=== PATIENT | female | born 1990 | race Caucasian/White ===

== ENCOUNTER 2023-12-24 15:45 | Emergency (ER) | payer OTHER, SELFPAY ==
[2023-12-24 15:51] VITALS: BP 182/103
[2023-12-24 16:05] LABS: % Basophils 0.4 % (0-2); % Eosinophils 0.1 % (0-6); % Immature Granulocytes 0.5 % (0-0.5); Absolute Lymphocytes 1.4 10^3/uL (1.2-3.4); Absolute Monocytes 0.3 10^3/uL (0.1-0.6); Absolute Neutrophils 6.7 10^3/uL (1.4-6.5); Hematocrit 41.2 % (37.0-47.0); Hemoglobin 14.4 g/dL (12.0-16.0); Mean Corpuscular Hgb 30.3 pg (27.0-31.0); Mean Corpuscular Volume 86.7 fL (81.0-99.0); Mean Platelet Volume 9.3 fL (7.4-10.4); Nucleated Red Blood Cells % 0 %; Platelet Count 286 10^3/uL (130-400); Red Blood Cell Count 4.75 10^6/uL (4.20-5.40); Red Cell Dist. Width 12.4 % (11.5-14.5); White Blood Cell Count 8.5 10^3/uL (4.8-10.8)
[2023-12-24 16:32] LABS: ALT (SGPT) 32 U/L (0-35); AST (SGOT) 29 U/L (14-36); Alkaline Phosphatase 71 U/L (38-126); Blood Urea Nitrogen 9 mg/dl (7-17); Calcium 9.8 mg/dl (8.4-10.2); Carbon Dioxide 23 mmol/L (22-30); Chloride 105 mmol/L (98-107); Glucose 153 mg/dl (70-99); Potassium 3.9 mmol/L (3.5-5.1); Sodium 137 mmol/L (135-145); Total Bilirubin 0.6 mg/dl (0.2-1.3); Total Protein 8.3 g/dl (6.3-8.2); eGFR > 60.00
--- NOTE | 2023-12-24 23:02 | ED.GENMED ---
History of Present Illness
General
Chief Complaint: Abnormal Lab Value
Source: patient
Exam Limitations: none
Time Seen by Provider: 12/24/23 16:21
Nursing documentation reviewed up to this point in time: agreed with
Travel History
Have you had any contact with someone who has COVID-19?: No
Do you have any symptoms of coronavirus? Fever > 100 degrees, chills, cough, shortness of breath, sore throat, loss of taste or smell, muscle aches, or headache?: No
History of Present Illness
History of Present Illness:
Patient to ED wt complaint of feeling anxious. States she was hospitalized 2 years ago for hyponatremia. SHe states she feels the same now as she did then. SHe has not had her labs drawn in some time. Came to ED for eval.
Past History
Past History
ED Past Medical History: Psychiatric (adhd)
ED Past Surgical History: None
Social History
Tobacco: Non-smoker
Alcohol: Occasional
Drug: None
Living: alone
Employment: Employed
Family History
Family History: Other (Reviewed and noncontributory)
Review of Systems
Review of Systems
Allergies reviewed?: Yes
All Other Systems: ROS reviewed and negative except as documented in HPI and ROS
Constitutional: Reports no symptoms
EENT: Reports no symptoms
Respiratory: Reports no symptoms
Cardiac: Reports no symptoms
ABD/GI: Reports no symptoms
: Reports no symptoms
Musculoskeletal: Reports no symptoms
Skin: Reports no symptoms
Neurological: Reports no symptoms
Psychiatric: Reports anxiety
Phy Exam
General Physical Exam
General Presentation: well appearing and no apparent distress
General age: appears stated age
General Skin: warm and dry
General Habitus: normal
General Mental: alert
Neurological Exam
Neurological Exam: alert, oriented x3, CN II-XII intact, no motor deficits, no sensory deficits, speech normal and normal gait
Musculoskeletal Exam
Musculoskeletal Exam: full ROM and neuro vasc intact
Skin Exam
Skin Exam: normal color, warm/dry and no rash
Psychiatric Exam
Psychiatric Exam: anxious
Course
Orders/Labs/Results
Orders:
Orders
12/24/23 15:58
Complete Blood Count/With Diff Urgent
Comprehensive Metabolic Panel Urgent
Abnormal Lab Results
12/24/23
15:58
Absolute Neuts (auto) 6.7 H 10^3/uL
(1.4-6.5)
Neutrophils % 79.0 H %
(42.2-75.2)
Lymphocytes % 16.0 L %
(20.5-51.1)
Glucose 153 H mg/dl
(70-99)
Total Protein 8.3 H g/dl
(6.3-8.2)
12/24/23 15:58
12/24/23 15:58
Vital Signs
Initial and Last Documented VS:
Initial Vital Signs
Temp Pulse Resp BP Pulse Ox
98.5 F 99 17 182/103 100
12/24/23 15:51 12/24/23 15:51 12/24/23 15:51 12/24/23 15:51 12/24/23 15:51
Last Documented Vital Signs
Temp Pulse Resp BP Pulse Ox
98.5 F 81 14 182/103 100
12/24/23 15:51 12/24/23 16:45 12/24/23 16:45 12/24/23 15:51 12/24/23 16:45
*Critical Care Note
Total Time (30-74mins, 75-104mins- exclusive of procedures): Not Applicable
Update Note
Update Note:
Labs reviewed with patient. Normal Na. She is discharged home and will follow upw ith PCP. Admits that she feels better knowning that Na is normal. Has no further complaints.
ED Attending Note
-
Portions of this chart may have been created with voice recognition software.� Occasional wrong word or��sound alike� substitutions may have occurred due to the inherent limitations of voice recognition software.
Discharge Plan
Departure
Patient Disposition: Home (Routine Discharge)
Date of Disposition: 12/24/23
Time of Disposition: 16:44
Patient with high blood pressure during this ER visit?: No
Condition: Good
Covid-19: Not Applicable
Discharge Problem:
Anxiety
Instructions: Anxiety, Adult ED
Prescriptions:
No Action
Latuda 20 mg Tablet
20 mg PO QPM Qty: 30 0RF
Activity Restrictions/Additional Instructions:
Followup with your family doctor
Interventions
Interventions:
ED- Fall Risk Assessment Last Done: 12/24/23 16:59
*ED COVID-19 Vaccine History Last Done: 12/24/23 17:06
*Nursing Disposition Last Done: 12/24/23 17:06
Discharge Date and Time
Discharge Date/Time: 12/24/23 17:07
Print Language: LATVIAN
== END 2023-12-24 17:07 | disposition home or self-care (01) ==
LOC: EMR 15:45
PROVIDERS: EMERGENCY PHYSICIAN Emergency Medicine; FAMILY PHYSICIAN Family Medicine
DX: F41.9 Anxiety disorder, unspecified (principal)
CPT/HCPCS: 99283; 80053; 85025

== ENCOUNTER 2024-06-14 19:20 | Emergency (ER) | payer OTHER, SELFPAY ==
[2024-06-14 19:30] VITALS: BP 165/114
[2024-06-14 19:52] LABS: % Basophils 0.5 % (0-2); % Eosinophils 0.9 % (0-6); % Immature Granulocytes 0.3 % (0-0.5); % Lymphocytes 25.4 % (20.5-51.1); % Monocytes 6.7 % (1.7-9.3); % Neutrophils 66.2 % (42.2-75.2); Absolute Eosinophils 0.1 10^3/uL (0-0.7); Absolute Lymphocytes 1.9 10^3/uL (1.2-3.4); Absolute Monocytes 0.5 10^3/uL (0.1-0.6); Absolute Neutrophils 5.1 10^3/uL (1.4-6.5); Hematocrit 42.4 % (37.0-47.0); Mean Corp Hgb Conc. 35.4 g/dL (33.0-37.0); Mean Corpuscular Hgb 32.6 pg (27.0-31.0); Mean Corpuscular Volume 92.2 fL (81.0-99.0); Mean Platelet Volume 9.1 fL (7.4-10.4); Nucleated Red Blood Cells % 0 %; Platelet Count 303 10^3/uL (130-400); Red Cell Dist. Width 11.9 % (11.5-14.5); White Blood Cell Count 7.6 10^3/uL (4.8-10.8)
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
[2024-06-14 20:12] VITALS: BMI 37.9
[2024-06-14 20:17] LABS: HCG, Serum Qualitative Screen Negative
[2024-06-14 20:20] LABS: ALT (SGPT) 34 U/L (0-35); AST (SGOT) 27 U/L (14-36); Albumin 5.1 g/dl (3.5-5.0); Alkaline Phosphatase 75 U/L (38-126); Blood Urea Nitrogen 11 mg/dl (7-17); Calcium 10.3 mg/dl (8.4-10.2); Carbon Dioxide 24 mmol/L (22-30); Chloride 103 mmol/L (98-107); Estimated Creatinine Clearance > 125 ml/min; Glucose 94 mg/dl (70-99); Potassium 3.9 mmol/L (3.5-5.1); Sodium 142 mmol/L (135-145); Total Bilirubin 0.5 mg/dl (0.2-1.3); Total Protein 8.1 g/dl (6.3-8.2); eGFR > 60.00
[2024-06-14 21:01] VITALS: BP 140/100
== END 2024-06-14 21:13 | disposition home or self-care (01) ==
LOC: EMR 19:20
PROVIDERS: Emergency Medicine; EMERGENCY PHYSICIAN Emergency Medicine; FAMILY PHYSICIAN Family Medicine
DX: F41.9 Anxiety disorder, unspecified (principal)
CPT/HCPCS: 99283; 80053; 84703; 85025

== ENCOUNTER 2025-02-26 12:22 | Emergency (ER) | payer OTHER, SELFPAY ==
[2025-02-26 12:24] VITALS: BP 160/100
--- NOTE | 2025-02-26 14:44 | ED.GENMED ---
History of Present Illness
General
Chief Complaint: Anxiety
Source: patient
Time Seen by Provider: 02/26/25 14:07
History of Present Illness
History of Present Illness:
35-year-old female with past medical history of ADHD, anxiety and depression presenting to the emergency department for evaluation due to increased anxiety and side effects from medication changes, unable to be seen by her new psychiatrist until
April. Patient states that for as long as she can remember she has been on medication for ADHD noting she had previously been on 20 to 30 mg of Adderall, was given a new prescription where she was taking 15 mg twice daily and she feels as if
this is not working for her stating she is unsure if there was a brand change or something else but states that this medication was not working for her. Due to various reason she had to leave her psychiatrist and was unable to obtain a new
appointment with a new psychiatrist until April and states that she was unable to see her usual primary care doctor but saw somebody else in the practice to seem hesitant to make any changes to her medications. Patient states it feels as if her
stomach is in knots. 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
Past History
Past History
ED Past Medical History: Psychiatric (ADHD, Anxiety, Depression); Negative Asthma, HTN, Hypercholesterolemia or NIDDM
ED Past Surgical History: None
Social History
Tobacco: Non-smoker
Alcohol: Occasional
Drug: None
Personal: Single
Living: alone
Employment: Employed
Family History
Family History: Other (Reviewed and noncontributory)
Review of Systems
Review of Systems
All Other Systems: ROS reviewed and negative except as documented in HPI and ROS
Phy Exam
Physical Exam
Physical Exam:
GENERAL: Alert , in no apparent distress but does seem anxious
EYE: conjunctiva clear
Head: Normocephalic atraumatic
NECK: Supple,
ENT: mmm.
LUNGS: no acute respiratory distress
NEUROLOGICAL: Alert and oriented
SKIN: Warm and dry, skin intact.
MUSCULOSKELETAL: well perfused.
PSYCH: Normal and appropriate interaction.
Scores
Heart Failure Risk
Heart Failure Risk Score: Not Applicable
Heart Score for Chest Pain Patients
STEMI patient?: Not applicable
Withdrawal Assessment of Alcohol
Withdrawal Assessment Completed?: Not applicable
Course
Orders/Labs/Results
Orders:
Orders
02/26/25 14:32
Crisis Consult Urgent
Reason for Consult: increased anxiety
Vital Signs
Initial and Last Documented VS:
Initial Vital Signs
Temp Pulse Resp BP Pulse Ox
98.2 F 80 16 160/100 98
02/26/25 12:24 02/26/25 12:24 02/26/25 12:24 02/26/25 12:24 02/26/25 12:24
Last Documented Vital Signs
Temp Pulse Resp BP Pulse Ox
98.2 F 84 20 142/65 98
02/26/25 12:24 02/26/25 16:22 02/26/25 16:22 02/26/25 16:22 02/26/25 16:22
MDM/Problems Addressed
Differential Diagnosis Includes:
- Medication side effects
- Exacerbation of chronic anxiety/depression
- No clinical concern for emergent pathology but do suspect ongoing chronic exacerbation of ADHD/anxiety
- Patient stating no SI or HI
MDM/Problems Addressed:
35-year-old female presenting to the ER for evaluation of increased anxiety and depression stating she feels as if her usual medications are not currently working for her, primary care provider did give patient some hesitancy in making any
medication changes. Overall I do not suspect any emergent pathologies however will reach out to patient's primary care provider to discuss potential medication changes at least until patient can be seen by her psychiatrist in April. I will
also notify her [facility] crisis team to help with consult in order to help with other outpatient avenues for further care.
Chronic conditions affecting care: Psychiatric illness
*Pulse Oximetry
SaO2: 98
Oxygen Mode of Delivery: Room air
Patient hypoxic: no
*Critical Care Note
Total Time (30-74mins, 75-104mins- exclusive of procedures): Not Applicable
Patient Management
Social determinants of health affecting care: Other (Strong outpatient follow-up)
Discussion with other providers: PCP
Escalation/DeEscalation of care consider admission/obs:
I spoke to patient's primary care provider who states that patient has a history of contacting their office on a near weekly basis, they have attempted to titrate up her Adderall dose and patient will call them stating that she thinks her dose is
too high, they titrate the dose down and then she calls them back and states she thinks the dose is too low. They have started prescribing her on a weekly basis to counteract this. Primary is requesting that we do not prescribe the patient any
medications here and they will reach out to the patient to follow-up with her on an outpatient basis. Patient was also able to schedule an appointment next week with the information provided by the [facility] crisis team. I do think it is
reasonable for patient to be discharged home at this time. She is aware of return precautions to the ER.
ED Attending Note
-
Portions of this chart may have been created with voice recognition software.� Occasional wrong word or��sound alike� substitutions may have occurred due to the inherent limitations of voice recognition software.
Discharge Plan
Departure
Patient Disposition: Home (Routine Discharge)
Date of Disposition: 02/26/25
Time of Disposition: 15:50
Patient with high blood pressure during this ER visit?: Yes
Discharge Problem:
Anxiety
Instructions: Anxiety, Adult (DC)
Prescriptions:
No Action
Latuda 20 mg Tablet
20 mg PO QPM Qty: 30 0RF
Referrals:
Kierra Robertson DO [Family Provider, Family Practice]
Interventions
Interventions:
*Risk Screen - Suicide Last Done: 02/26/25 12:24
*Neglect/Abuse Screening Last Done: 02/26/25 12:24
*ED- Fall Risk Assessment Last Done: 02/26/25 15:18
*ED COVID-19 Vaccine History Last Done: 02/26/25 15:18
*Nursing Disposition Last Done: 02/26/25 16:22
ED-Psychological Assessment Last Done: 02/26/25 15:18
Discharge Date and Time
Discharge Date/Time: 02/26/25 16:23
Print Language: BELIZEAN
[2025-02-26 16:22] VITALS: BP 142/65
== END 2025-02-26 16:23 | disposition home or self-care (01) ==
LOC: EMR 12:22
PROVIDERS: EMERGENCY PHYSICIAN Student in an Organized Health Care Education/Training Program; FAMILY PHYSICIAN Family Medicine
DX: F41.9 Anxiety disorder, unspecified (principal); Z79.899 Other long term (current) drug therapy; F32.A Depression, unspecified
CPT/HCPCS: 99283